=== PATIENT | male | born 1945 | race Caucasian/White ===

== ENCOUNTER 2016-12-08 14:05 | Emergency (ER) | payer MEDICARE ==
--- NOTE | 2016-12-08 15:08 | ERPHSYRPT ---
- History of Present Illness Time Seen by Provider: 12/08/16 14:30 Source: patient, EMS, long-term records Exam Limitations: clinical condition Patient Subjective Stated Complaint: pt arrived per amb for hyotension at [place] today, pt arrived alert but sleepy, states that he vomited at lunch table and now feels ok Triage Nursing Assessment: pt alert, sleepy, resp easy,chest clear, skin w/d pink Physician History: PATIENT WITH HISTORY OF TYPE 2 DIABETES, HYPERTENSION, INTRACEREBRAL HEMORRHAGE AFTER ENDOSCOPIC EXCISION COLLOID CYST, STATES WHILE AT LUNCH TABLE HAD EPISODE OF NEAR SYNCOPE AFTER VOMITING ASSOCIATED WITH LOW BLOOD PRESSURE. PATIENT DENIES COMPLAINS OF HEADACHE, BLURRED VISION, DIZZINESS, FOCAL NUMBNESS , TINGLING OR WEAKNESS. Witnessed: bystander Prior Episodes: single episode today Timing/Duration: today Precipitating Factors: other ( EATING LUNCH FOLLOWED BY EMESIS) Loss of Consciousness: brief (seconds) Charcter of event(s): almost passed out Allergies/Adverse Reactions: No Known Drug Allergies Allergy (Verified 12/08/16 14:17) Home Medications: Gabapentin [Neurontin] 600 mg PO TID 09/22/14 [History] Insulin Aspart [NovoLOG Insulin] 60 units SQ BID 09/22/14 [History] Insulin Glargine,Hum.rec.anlog [Lantus] 80 unit SQ BID 09/22/14 [History] Metformin HCl 1000 mg [Glucophage 1000 MG] 1,000 mg PO BID 09/22/14 [History] Calcium Carbonate/Vitamin D3 [Calcium 500-Vit D3 400 Tablet] 1 ea BID 12/08/16 [ History] Levetiracetam [Keppra 500 mg ] 500 mg BID 12/08/16 [History] Vit B12/Lmefolate Ca/Vit B6/B2 [Cerefolin Caplet] 2 ea DAILY 12/08/16 [History] Hx Tetanus, Diphtheria Vaccination/Date Given: No Hx Influenza Vaccination/Date Given: No Hx Pneumococcal Vaccination/Date Given: No - Past Medical History Pertinent Past Medical History: Yes Neurological History: Peripheral Neuropathy, Seizures ENT History: Cataracts Cardiac History: Coronary Artery Disease, Myocardial Infarction ([place]) Respiratory History: No Pertinent History Endocrine Medical History: Diabetes Type II Musculoskeletal History: No Pertinent History, Other GI Medical History: GERD History: No Pertinent History Psycho-Social History: Depression Male Reproductive Disorders: Penile Cancer Other Medical History: 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 PER CT - BALANCE ISSUES - Past Surgical History Past Surgical History: Yes Neuro Surgical History: No Pertinent History Cardiac: No Pertinent History Respiratory: No Pertinent History Gastrointestinal: Cholecystectomy Genitourinary: No Pertinent History Musculoskeletal: No Pertinent History Male Surgical History: No Pertinent History Other Surgical History: 6 BACK SURGERIES - Social History Smoking Status: Current every day smoker How long have you smoked: YRS Exposure to second hand smoke: No Drug Use: none Patient Lives Alone: No (long-term) - Review of Systems Constitutional: No Fever, No Chills Eyes: No Symptoms Ears, Nose, & Throat: No Symptoms Respiratory: No Symptoms, No Cough, No Dyspnea Cardiac: No Chest Pain, No Edema, No Syncope Abdominal/Gastrointestinal: Nausea, Vomiting, No Abdominal Pain, No Diarrhea Genitourinary Symptoms: No Symptoms, No Dysuria Musculoskeletal: No Symptoms, No Back Pain, No Neck Pain Skin: No Symptoms, No Rash Neurological: Vertigo, Other (TRANSIENT NEAR SYNCOPE), No Dizziness, No Focal Weakness, No Sensory Changes Psychological: No Symptoms Endocrine: No Symptoms All Other Systems: Reviewed and Negative Physical Exam - Nursing Vital Signs Nursing Vital Signs: Initial Vital Signs Temperature 98.3 F Temperature Source Oral Pulse Rate 86 Respiratory Rate 16 Blood Pressure [] 128/62 Pain Intensity 0 - [place] Coma Scale Best Eye Response ([place]): (4) open spontaneously Best Verbal Response ([place]): (5) oriented Best Motor Response ([place]): (6) obeys commands [place] Total: 15 - Physical Exam General Appearance: no apparent distress, alert, other (ALERT AND APPROPRIATE) Eye Exam: bilateral eye: PERRL, EOMI Ears, Nose, Throat Exam: normal ENT inspection, pharynx normal, moist mucous membranes Neck Exam: normal inspection, non-tender, supple, full range of motion Respiratory: normal breath sounds, lungs clear, No chest tenderness, No respiratory distress Cardiovascular: regular rate/rhythm, capillary refill <2 sec, No murmur, No pulse deficit Gastrointestinal: soft, No tenderness, No distention, No mass Back Exam: normal inspection, normal range of motion, No CVA tenderness, No vertebral tenderness Extremity Exam: normal inspection, normal range of motion, pelvis stable, No tenderness Peripheral Pulses: carotid (R): 2+, carotid (L): 2+, femoral (R): 2+, femoral (L ): 2+, dorsalis-pedis (R): 2+, dorsalis-pedis (L): 2+ Mental Status: alert, oriented x 3, cooperative mortgage operations manager Exam: normal speech, PERRL, No facial droop Coordination/Gait: normal finger to nose Motor/Sensory: no motor deficit, no sensory deficit, no pronator drift DTR: bicep (R): 2+, bicep (L): 2+, tricep (R): 2+, tricep (L): 2+, knee (R): 2+ , knee (L): 2+, ankle (R): 2+, ankle (L): 2+ Skin Exam: normal color, warm, dry, No rash SpO2 Interpretation: normal SpO2: 98 Oxygen Delivery: Room Air - Course EKG Interpreted by Me: RATE, Sinus Rhythm, Right [place] Deviation, Non-specific ST Changes - Radiology Exams Chest X-ray Interpretation: Discussed w/ radiologist (STABLE NONACUTE CHEST WITH CHRONIC FEATURES) - CT Exams Head CT Interpretation: Discussed w/radiologist (AGAIN NONACUTE SENILE BRAIN, SMALL RIGHT MAXILLARY SINUS POLY/RETENTION CYST) Ordered Tests: Active Orders 24 hr Category Date Time Status ACCUCHECK [Accucheck] STAT Care 12/08/16 14:33 Active ACCUCHECK [Accucheck] STAT Care 12/08/16 17:33 Active Director Of Philanthropy STAT Care 12/08/16 14:45 Active EKG-ER Only STAT Care 12/08/16 14:45 Active Oxygen-ED Only NASAL CANNULA 2 lpm Care 12/08/16 14:45 Active Regular Diet Diet 12/08/16 Dinner Active CHEST 1 VIEW (PORTABLE) Stat Exams 12/08/16 14:46 Completed HEAD WITHOUT CONTRAST [CT] Stat Exams 12/08/16 14:49 Completed CBC W DIFF Stat Lab 12/08/16 15:20 Completed CMP Stat Lab 12/08/16 15:20 Completed MAGNESIUM Stat Lab 12/08/16 15:20 Completed NT PRO BNP Stat Lab 12/08/16 15:20 Completed PROTIME WITH INR Stat Lab 12/08/16 15:20 Completed TROPONIN Q3H Lab 12/08/16 15:20 Completed TROPONIN Q3H Lab 12/08/16 18:11 Completed TROPONIN Q3H Lab 12/08/16 21:00 Ordered TROPONIN Q3H Lab 12/09/16 00:00 Ordered TROPONIN Q3H Lab 12/09/16 03:00 Ordered UA Stat Lab 12/08/16 15:02 Uncollected Lab/Rad Data: Laboratory Result Diagrams 12/08/16 15:20 12/08/16 15:20 Laboratory Results 12/08/16 12/08/16 12/08/16 Range/Units 18:11 15:20 15:20 WBC (4.0-10.5) K/mm3 RBC (4.1-5.6) M/mm3 Hgb (12.5-18.0) gm/dl Hct (42-50) % MCV (78-100) fl MCH (26-32) pg MCHC (32-36) g/dl RDW (11.5-14.0) % Plt Count (150-450) K/mm3 MPV (6-9.5) fl Gran % (36.0-66.0) % Lymphocytes % (24.0-44.0) % Monocytes % (0.0-12.0) % Eosinophils % (0.00-5.0) % Basophils % (0.0-0.4) % Basophils # (0-0.4) INR 0.94 (0.8-3.0) Sodium (136-145) mEq/L Potassium (3.5-5.1) mEq/L Chloride (98-107) mEq/L Carbon Dioxide (21-32) mEq/L Anion Gap (5-15) MEQ/L BUN (9-20) mg/dL Creatinine (0.55-1.30) mg/dl Estimated GFR ML/MIN Glucose (70-110) MG/DL Calcium (8.5-10.1) mg/dL Magnesium (1.8-2.4) mg/dL Total Bilirubin (0.2-1.0) mg/dL AST (15-37) U/L ALT (12-78) U/L Alkaline Phosphatase (46-116) U/L Troponin I < 0.017 < 0.017 (0.000-0.056) ng/ml NT-Pro-B Natriuret Pep (0-125) pg/ml Serum Total Protein (6.4-8.2) gm/dL Albumin (3.4-5.0) g/dL 12/08/16 12/08/16 Range/Units 15:20 15:20 WBC 9.3 (4.0-10.5) K/mm3 RBC 4.34 (4.1-5.6) M/mm3 Hgb 12.5 (12.5-18.0) gm/dl Hct 39.0 L (42-50) % MCV 89.9 (78-100) fl MCH 28.8 (26-32) pg MCHC 32.1 (32-36) g/dl RDW 13.6 (11.5-14.0) % Plt Count 203 (150-450) K/mm3 MPV 10.2 H (6-9.5) fl Gran % 70.8 H (36.0-66.0) % Lymphocytes % 18.2 L (24.0-44.0) % Monocytes % 8.6 (0.0-12.0) % Eosinophils % 1.8 (0.00-5.0) % Basophils % 0.6 (0.0-0.4) % Basophils # 0.06 (0-0.4) INR (0.8-3.0) Sodium 143 (136-145) mEq/L Potassium 4.8 (3.5-5.1) mEq/L Chloride 106 (98-107) mEq/L Carbon Dioxide 30.0 (21-32) mEq/L Anion Gap 11.9 (5-15) MEQ/L BUN 16 (9-20) mg/dL Creatinine 1.44 H (0.55-1.30) mg/dl Estimated GFR 51 ML/MIN Glucose 79 (70-110) MG/DL Calcium 9.5 (8.5-10.1) mg/dL Magnesium 1.7 L (1.8-2.4) mg/dL Total Bilirubin 0.2 (0.2-1.0) mg/dL AST 19 (15-37) U/L ALT 38 (12-78) U/L Alkaline Phosphatase 77 (46-116) U/L Troponin I (0.000-0.056) ng/ml NT-Pro-B Natriuret Pep 65 (0-125) pg/ml Serum Total Protein 7.4 (6.4-8.2) gm/dL Albumin 3.5 (3.4-5.0) g/dL - Progress Progress Note: 12/08/16 18:37 ACCUCHECK 59 AT 1752 12/08/16 18:38 12/08/16 18:55 REPEAT ACCUCHECK 101 Counseled pt/family regarding: lab results, diagnosis, need for follow-up, rad results - Departure Time of Disposition: 19:02 Departure Disposition: Home Clinical Impression: VASOVAGAL EPISODE, HYPOGLYCEMIA Condition: Stable Critical Care Time: No Referrals: CHANDLER MILLS MD [Primary Care Provider] - Additional Instructions: CONTINUE ALL CURRENT MEDICATIONS AND CHECK BLOOD GLUCOSE AFTER MEALS AND AT BEDTIME.
--- NOTE | 2016-12-08 15:12 | XRAY ---
Indication: Syncope. Multiple contiguous axial images obtained through the head without contrast. Comparison: January 25, 2016. Stable global atrophy and moderate periventricular degenerative micro-ischemia. No acute intracranial hemorrhage, abnormal extra-axial fluid collection, or mass effect. Fourth ventricle is midline. Bony calvarium intact again with right vertex nellie hole. Subcentimeter polyp/retention cyst in the medial right maxillary sinus. Remaining visualized paranasal sinuses and mastoid air cells are clear. Impression: Again nonacute senile brain. Small right maxillary sinus polyp/retention cyst. CTDI 67.60
--- NOTE | 2016-12-08 15:13 | XRAY ---
Indication: Dyspnea. Comparison: April 19, 2015. Portable chest demonstrates stable right lung calcified granulomas. Remaining heart and lungs normal. Bony thorax intact again with mild degenerative changes. Impression: Stable nonacute chest with chronic features.
[2016-12-08 15:54] LABS: INR 0.94 (0.8-3.0); PROTIME 10.5 SECONDS (8.83-12.87)
[2016-12-08 16:03] LABS: BASOPHIL % 0.6 % (0.0-0.4); Eosinophil % 1.8 % (0.00-5.0); Granulocytes % 70.8 % (36.0-66.0); Lymphocytes % 18.2 % (24.0-44.0); Mean Cell Volume 89.9 fl (78-100); Mean Corpuscular Hemoglobin 28.8 pg (26-32); Mean Platelet Volume 10.2 fl (6-9.5); Monocytes % 8.6 % (0.0-12.0); Platelet Count 203 K/mm3 (150-450); Red Blood Count 4.34 M/mm3 (4.1-5.6); Red Cell Distribution Width 13.6 % (11.5-14.0); White Blood Count 9.3 K/mm3 (4.0-10.5)
[2016-12-08 16:12] LABS: ALBUMIN 3.5 g/dL (3.4-5.0); ANION GAP 11.9 MEQ/L (5-15); BILIRUBIN,TOTAL 0.2 mg/dL (0.2-1.0); MAGNESIUM 1.7 mg/dL (1.8-2.4); Potassium 4.8 mEq/L (3.5-5.1); Total Protein 7.4 gm/dL (6.4-8.2)
[2016-12-08 18:38] VITALS: O2SAT 98
[2016-12-08 18:43] VITALS: BP 128/62; PULSE 86
== END 2016-12-08 19:10 ==
LOC: ED 14:05
DX: R55 Syncope and collapse (principal); E16.2 Hypoglycemia, unspecified
CPT/HCPCS: 36415; 70450; 71010; 80053; 82962; 83735; 83880; 84484; 85025; 85610; 93005; 93041; 99284